=== PATIENT | female | born 2000 | race Caucasian/White ===

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

== ENCOUNTER 2020-04-24 02:50 | Emergency (ER) | payer OTHER ==
[~2020-04-24] VITALS: Ht 167.6 cm; Wt 65.8 kg
--- OUTSIDE RECORDS SUMMARY | 2020-04-24 02:54 | XMS ---
PreManage Notification: RAZA JOHNSON [employer] Counter Events No recent Security Events currently on file CRITERIA MET - 6 ED Visits in 6 Months - [facility] - 3 Facilities in 90 Days - [facility] - 2 Visits in 30 Days CARE PROVIDERS There are no care providers on record at this time. Cristiano has no Care Guidelines for this patient. EChip VISIT COUNT (12 MO.) [address] 3 DIANA [place] TOTAL 12 NOTE: Visits indicate total known visits. ED/C VISIT TRACKING (12 MO.) 04/24/2020 02:52 [facility] [place] TYPE: Emergency COMPLAINT: - INTOXIFICATION 04/02/2020 09:15 [facility] [place] TYPE: Emergency DIAGNOSES: - Emesis - Acute cystitis without hematuria - Nausea with vomiting, unspecified - dehydration/nausea 03/20/2020 16:51 [facility] [place] TYPE: Emergency DIAGNOSES: - Acquired absence of other organs - Dehydration - Emesis - Other acute postprocedural pain - Chest Pain - Epistaxis 03/13/2020 10:03 [facility] [place] TYPE: Emergency DIAGNOSES: - Acute tonsillitis, unspecified - pneumonia, strep - pnuemonia, strep - Swallowing Difficulty - pneumonia, strep, tent 1 [facility] [place] [facility] DIAGNOSES: - Vaginal Pain - Urinary tract infection, site not specified - Dysuria - Other specified conditions associated with female genital organs and menstrual cycle - Other specified bacterial agents as the cause of diseases classified elsewhere - Candidiasis of vulva and vagina - Acute vaginitis 11/01/2019 18:16 [facility] TYPE: Emergency COMPLAINT: - VOMITING/CHEST PAIN DIAGNOSES: - Noninfective gastroenteritis and colitis, unspecified - Unspecified abdominal pain [facility] [place] DIAGNOSES: - Acute pharyngitis, unspecified - Noninfective gastroenteritis and colitis, unspecified - sore throat 10/20/2019 21:12 [facility] [place] TYPE: Emergency COMPLAINT: - SORE THROAT/CHEST PAIN/SOB DIAGNOSES: - Unspecified abdominal pain - Acute upper respiratory infection, unspecified - Acute pharyngitis, unspecified 09/04/2019 11:20 [facility] [place] [facility] DIAGNOSES: - Abdominal Pain - Unspecified abdominal pain - rlq pain 07[facility]2019 [facility] [place] DIAGNOSES: - Vaginal Bleed - Threatened - poss miscarriage 06/28/2019 21:03 [facility] [place] [facility] DIAGNOSES: - Threatened - 8 wks preg vaginal bleeding abd pain - Vaginal Bleed 05/17/2019 10:37 [facility] [place] DIAGNOSES: - back pain - Flank Pain - Urinary tract infection, site not specified - Abdominal Pain 05/17/2019 10:26 [facility] [place] [facility] [place] TYPE: Urgent Care DIAGNOSES: - Procedure and treatment not carried out due to patient leaving prior to being seen by health care provider INPATIENT VISIT TRACKING (12 MO.) 04/02/2020 09:15 [facility] DIAGNOSES: - Acute cystitis without hematuria - Slow transit constipation - Nausea with vomiting, unspecified 03/13/2020 16:32 [facility] DIAGNOSES: - tonsillitis, strep, dehydration [email or web address]
== END 2020-04-24 04:06 | disposition home or self-care (01) ==
LOC: ED 02:50
DX: F10.129 Alcohol abuse with intoxication, unspecified (principal)
CPT/HCPCS: 99283